=== PATIENT | female | born 1945 | race Caucasian/White ===

== ENCOUNTER 2017-09-26 14:32 | Inpatient (IN) | payer OTHER ==
[2017-09-26 14:50] LABS: Arterial Blood Carboxyhemoglob 0.6 % (0-1.5); Blood Gas Oxyhemoglobin 97.7 % (94-97); Blood O2 Saturation 98.8 % (92-98.5)
[2017-09-26] MEDS ORDERED: LEVALBUTEROL 1.25 MG/3 ML NEB ONE (15:02)
[2017-09-26 15:16] LABS: Absolute Lymphocytes (CBC) 1.2 K/uL (0.7-4.9); Absolute Monocytes 1.8 K/uL (0.1-1.3); Absolute Neutrophil 15.9 K/uL (1.8-8.0); Basophils % 0.1 % (0-1.3); Eosinophils % 0.1 % (0-4.4); Hematocrit 33.5 % (36.0-45.0); Lymphocytes % 6.4 % (15.3-44.8); MCH 30.1 pg (27.0-35.0); MCV 94.2 fL (80-100); MPV 9.8 fL (7.6-11.3); Monocytes % 9.5 % (3.3-12.3); RBC Red Blood Cell Count 3.56 M/uL (3.86-4.86)
[2017-09-26 15:17] LABS: Protime INR 1.11
[2017-09-26 15:19] LABS: Potassium 4.7 mEq/L (3.6-5.0)
[2017-09-26 15:25] LABS: Albumin 3.4 g/dL (3.2-5.5); Bilirubin Total 0.4 mg/dL (0.3-1.2); Magnesium 2.4 mg/dL (1.8-2.5); Protein, Total 6.8 g/dL (6.0-8.3)
--- NOTE | 2017-09-26 15:38 | RAD REPORT ---
EXAM DESCRIPTION: RAD - Chest Single View - 09/26/2017 2:57 pm CLINICAL HISTORY: Dyspnea, COPD history COMPARISON: CT chest June 2017 TECHNIQUE: AP portable chest image was obtained 1451 hours . FINDINGS: Extensive fibrotic lung pattern is seen. Diaphragm is flattened. No new mass or consolidat ion. CT study showed a right suprahilar mass not clearly different in size. Comparing between 2 diffe rent modalities is limited but no change suspected. No new mass lesion. No failure or volume overload suspected. Heart and vasculature are normal. No measurable pleural effusion and no pneumothorax. No acute bone finding. Thoracolumbar scoliosis present. No acute aortic findings suspected. IMPRESSION: Prominent COPD findings with no superimposed failure or infiltrate. Right suprahilar lung mass is not clearly different over the 3 month interval since June CT.
[2017-09-26 16:02] LABS: Bilirubin Direct 0.1 mg/dL (0-0.2)
[2017-09-26] MEDS ORDERED: NA CHLORIDE 0.9% 1,000 ML ONE ×2 (16:09→19:40)
[2017-09-26] MEDS ORDERED: Levofloxacin500mg IV 500 MG/100 ML BAG IV ONE (16:09)
[2017-09-26] MEDS ORDERED: NA CHLORIDE 0.9% 500 ML ONE (16:09)
--- NOTE | 2017-09-26 16:11 | EDPHYS ---
Physician Documentation [facility] Name: Juliet Iniguez Age: 72 yrs Sex: Female : 1945 Arrival Date: 09/26/2017 Time: 14:35 Bed 3 Private MD: ED Physician Shlomo Damon HPI: 09/26 15:50 This 72 yrs old Female presents to ER via EMS with complaints of Shortness Of jr8 Breath. 15:50 The patient has shortness of breath at rest. Onset: The symptoms/episode began/occurred jr8 acutely, today. Duration: The symptoms are continuous. The patient's shortness of breath is aggravated by talking. Associated signs and symptoms: The patient has no apparent associated signs or symptoms. Severity of symptoms: At their worst the symptoms were severe in the emergency department the symptoms are unchanged. It is unknown whether or not the patient has had similar symptoms in the past. The patient has not recently seen a physician. History of COPD and Lung CA. Currently undergoing radiation therapy. Had sudden worsening of shortness of breath that started today. 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 Historical: - Allergies: 16:06 No Known Allergies; la1 - Home Meds: 16:51 Vitamin D vitamin D3 1000 unit daily in the morning Oral [Active]; Advair Diskus 250-50 la1 mcg/dose Inhl dsdv 1 puff 2 times per day [Active]; Spiriva with HandiHaler inhalation once daily [Active]; aspirin 81 mg Oral TbEC 1 tab once daily [Active]; Plavix 75 mg Oral tab 1 tab once daily [Active]; Lipitor 20 mg Oral tab 1 tab once daily [Active]; Wellbutrin SR 100 mg Oral TbER 1 tab 2 times per day [Active]; Levoxyl 75 mcg Oral tab 1 tab once daily [Active]; Remeron 15 mg Oral tab 1 tab once daily [Active]; Lasix 20 mg Oral tab 1 tab once daily [Active]; potassium chloride 20 mEq Oral TbTQ 1 tab once daily [Active]; Coreg 6.25 mg Oral tab 1 tab every 12 hours [Active]; lisinopril 2.5 mg Oral tab 1 tab once daily [Active]; ProAir HFA 90 mcg/actuation inhalation HFAA 2 puffs PRN [Active]; [place] 5-325 mg Oral tab 1 tab PRN [Active]; Ativan 0.5 mg Oral tab 1 tab PRN [Active]; prednisone 10 mg Oral tab PRN [Active]; azithromycin 1 gram Oral pack 1 packet [Active]; Prednisolone Oral taper [Active]; - PMHx: 16:06 lung CA; COPD; Hypertension; la1 - Immunization history:: Adult Immunizations up to date. - Social history:: Smoking status: unknown. ROS: 15:50 Eyes: Negative for injury, pain, redness, and discharge, ENT: Negative for injury, jr8 pain, and discharge, Neck: Negative for injury, pain, and swelling, Cardiovascular: Negative for chest pain, palpitations, and edema, Abdomen/GI: Negative for abdominal pain, nausea, vomiting, diarrhea, and constipation, Back: Negative for injury and pain, MS/Extremity: Negative for injury and deformity, Skin: Negative for injury, rash, and discoloration, Neuro: Negative for headache, weakness, numbness, tingling, and seizure. 15:50 Respiratory: Positive for cough, dyspnea on exertion, shortness of breath, wheezing. Exam: 15:50 Head/Face: Normocephalic, atraumatic. Eyes: Pupils equal round and reactive to light, jr8 extra-ocular motions intact. Lids and lashes normal. Conjunctiva and sclera are non-icteric and not injected. Cornea within normal limits. Periorbital areas with no swelling, redness, or edema. ENT: Nares patent. No nasal discharge, no septal abnormalities noted. Tympanic membranes are normal and external auditory canals are clear. Oropharynx with no redness, swelling, or masses, exudates, or evidence of obstruction, uvula midline. Mucous membranes moist. Neck: Trachea midline, no thyromegaly or masses palpated, and no cervical lymphadenopathy. Supple, full range of motion without nuchal rigidity, or vertebral point tenderness. No Meningismus. Cardiovascular: Sinus Tachycardia with a normal S1 and S2. No gallops, murmurs, or rubs. Normal PMI, no JVD. No pulse deficits. Abdomen/GI: Soft, non-tender, with normal bowel sounds. No distension or tympany. No guarding or rebound. No evidence of tenderness throughout. Back: No spinal tenderness. No costovertebral tenderness. Full range of motion. Skin: Warm, dry with normal turgor. Normal color with no rashes, no lesions, and no evidence of cellulitis. MS/ Extremity: Pulses equal, no cyanosis. Neurovascular intact. Full, normal range of motion. Neuro: Awake and alert, GCS 15, oriented to person, place, time, and situation. Cranial nerves II-XII grossly intact. Motor strength 5/5 in all extremities. Sensory grossly intact. Cerebellar exam normal. Normal gait. 15:50 Respiratory: moderate respiratory distress is noted, Respirations: labored breathing, tachypnea, Breath sounds: wheezing: expiratory that is moderate, is heard diffusely. Vital Signs: 14:41 BP 167 / 79; Pulse 123; Resp 36; Pulse Ox 96% on 100% BiPAP; la1 16:03 BP 120 / 57; Pulse 112; Resp 17; Pulse Ox 100% on 30% BiPAP; Weight 47.63 kg; la1 16:10 Temp 97.8(A); la1 16:53 BP 117 / 50; Pulse 103; Resp 18; Pulse Ox 100% on BiPAP; jb1 17:40 BP 133 / 64; Pulse 101; Resp 19; Pulse Ox 98% on 30% BiPAP; la1 18:51 BP 130 / 57; Pulse 105; Resp 21; Pulse Ox 98% on 30% BiPAP; la1 MDM: 14:40 Patient medically screened. jr8 15:56 Data reviewed: vital signs, nurses notes, lab test result(s), EKG, radiologic studies, jr8 plain films, and as a result, I will admit patient. Data interpreted: Pulse oximetry: on room air is 96 %. Interpretation: normal. Counseling: I had a detailed discussion with the patient and/or guardian regarding: the historical points, exam findings, and any diagnostic results supporting the discharge/admit diagnosis, lab results, radiology results, the need for further work-up and treatment in the hospital. 16:08 ED course: Talked to Dr. Miller about calcium. Will start on aggressive fluid jr8 resuscitation and pamidronate. Dr. Givens notified as well and accepted to ICU . 09/26 14:42 Order name: Basic Metabolic Panel jr8 09/26 14:42 Order name: BNP jr8 09/26 14:42 Order name: CBC with Diff; Complete Time: 15:23 jr8 09/26 14:42 Order name: LFT's; Complete Time: 16:11 [facility] 09/26 14:42 Order name: Magnesium; Complete Time: 16:11 [facility] 09/26 14:42 Order name: PT-INR; Complete Time: 15:39 09/26 14:42 Order name: Troponin (emerg Dept Use Only); Complete Time: 15:39 09/26 14:42 Order name: Blood Culture Adult (2) 09/26 14:42 Order name: ABG; Complete Time: 15:11 [facility] 09/26 14:43 Order name: Basic Metabolic Panel; Complete Time: 16:11 [facility] 09/26 14:43 Order name: BNP B-Type Natriuretic Peptide; Complete Time: 15:39 [facility] 09/26 19:17 Order name: ABG Arterial Blood Gas; Complete Time: 10:17 [facility] 09/26 19:43 Order name: Troponin I; Complete Time: 10:17 [facility] 09/26 20:02 Order name: Procalcitonin; Complete Time: 10:17 [facility] 09/26 14:42 Order name: XRAY Chest (1 view); Complete Time: 15:39 09/26 14:42 Order name: EKG; Complete Time: 14:43 [facility] 09/26 14:42 Order name: Cardiac monitoring; Complete Time: 14:42 [facility] 09/26 14:42 Order name: EKG - Nurse/Tech; Complete Time: 14:47 09/26 14:42 Order name: IV Saline Lock; Complete Time: 14:43 [facility] 09/26 14:42 Order name: Labs collected and sent; Complete Time: 15:02 [facility] 09/26 14:42 Order name: O2 Per Protocol; Complete Time: 14:43 [facility] 09/26 14:42 Order name: O2 Sat Monitoring; Complete Time: 14:43 [facility] 09/26 14:42 Order name: Urine Dipstick-Ancillary (obtain specimen); Complete Time: 18:17 [facility] 09/26 14:42 Order name: BIPAP [facility] 09/26 16:20 Order name: CONS Physician Consult [facility] 09/26 22:52 Order name: CT; Complete Time: 10:17 EDMS Administered Medications: 15:10 Drug: Xopenex (3) 1.25 mg Route: Inhalation; la1 16:18 Drug: LevaQUIN 500 mg Volume: 100 ml; Route: IVPB; Infused Over: 60 mins; Site: left la1 antecubital; 17:13 Follow up: IV Status: Completed infusion la1 16:18 Drug: NS 0.9% (30 ml/kg) 30 ml/kg Route: IV; Rate: bolus; Site: left antecubital; la1 17:14 Drug: Pamidronate 60 mg Route: IV; Rate: calculated rate; Site: left antecubital; la1 Disposition: 09/26/17 16:10 Hospitalization ordered by Aimee Givens for Inpatient Admission. Preliminary diagnosis are Acute and chronic respiratory failure with hypercapnia, Chronic obstructive pulmonary disease with (acute) exacerbation, Hypercalcemia. - Bed requested for Intensive Care Unit. - Status is Inpatient Admission. bb - Condition is Fair. - Problem is new. - Symptoms have improved. UTI on Admission? No Addendum: 10/04/2017 20:01 Co-signature as Attending Physician, Shlomo Damon MD I agree with the assessment and k dr plan of care. Signatures: Dispatcher [employer] EDND Shlomo Damon MD MD kdr Lily Kim RN RN bb Isabel Galindo RN RN iw Dusty Da Silva PA PA jr8 Dav Brown RN RN la1 Corrections: (The following items were deleted from the chart) 09/26 17:39 16:10 Hospitalization Ordered by Aimee Givens MD for Inpatient Admission. Preliminary iw diagnosis is Acute and chronic respiratory failure with hypercapnia; Chronic obstructive pulmonary disease with (acute) exacerbation; Hypercalcemia. Bed requested for Intensive Care Unit. Status is Inpatient Admission. Condition is Fair. Problem is new. Symptoms have improved. UTI on Admission? No. jr8 18:05 17:39 09/26/2017 16:10 Hospitalization Ordered by Aimee Givens MD for Inpatient iw Admission. Preliminary diagnosis is Acute and chronic respiratory failure with hypercapnia; Chronic obstructive pulmonary disease with (acute) exacerbation; Hypercalcemia. Bed requested for [facility] ER HOLD. Status is Inpatient Admission. Condition is Fair. Problem is new. Symptoms have improved. UTI on Admission? No. iw 21:50 18:05 09/26/2017 16:10 Hospitalization Ordered by Aimee Givens MD for Inpatient la1 Admission. Preliminary diagnosis is Acute and chronic respiratory failure with hypercapnia; Chronic obstructive pulmonary disease with (acute) exacerbation; Hypercalcemia. Bed requested for [facility] ER HOLD. Status is Inpatient Admission. Condition is Fair. Problem is new. Symptoms have improved. UTI on Admission? No. iw 09/27 00:14 09/26 21:50 09/26/2017 16:10 Hospitalization Ordered by Aimee Givens MD for Inpatient bb Admission. Preliminary diagnosis is Acute and chronic respiratory failure with hypercapnia; Chronic obstructive pulmonary disease with (acute) exacerbation; Hypercalcemia. Bed requested for Intensive Care Unit. Status is Inpatient Admission. Condition is Fair. Problem is new. Symptoms have improved. UTI on Admission? No. la1
--- NOTE | 2017-09-26 16:11 | ER ---
Nurse's Notes [facility] Name: Juliet Iniguez Age: 72 yrs Sex: Female : 1945 Arrival Date: 09/26/2017 Time: 14:35 Bed 3 Private MD: Diagnosis: Acute and chronic respiratory failure with hypercapnia;Chronic obstructive pulmonary disease with (acute) exacerbation;Hypercalcemia Presentation: 09/26 14:36 Presenting complaint: EMS states: COPD exacerbation x 2 days. 89% on NC at home. Pr la1 currently receiving radiation treatment for lung CA. Transition of care: patient was not received from another setting of care. Onset of symptoms was September 26, 2017. Initial Sepsis Screen: Does the patient meet any 2 criteria? RR > 20 per min. HR > 90 bpm. Yes Does the patient have a suspected source of infection? No. Patient's initial sepsis screen is negative. Care prior to arrival: None. 14:36 Method Of Arrival: EMS: [facility] la1 14:36 Acuity: KEITH 2 la1 14:37 Care prior to arrival: Medication(s) given: Albuterol Neb Atrovent Neb solu-medrol 125 la1 and NS 250. Triage Assessment: 14:46 General: Appears distressed, uncomfortable, Behavior is cooperative. Respiratory: la1 Reports shortness of breath at rest air hunger labored breathing since one day Breath sounds with wheezes bilaterally. Respiratory: Onset: The symptoms/episode began/occurred yesterday. Historical: - Allergies: 16:06 No Known Allergies; la1 - Home Meds: 16:51 Vitamin D vitamin D3 1000 unit daily in the morning Oral [Active]; Advair Diskus 250-50 la1 mcg/dose Inhl dsdv 1 puff 2 times per day [Active]; Spiriva with HandiHaler inhalation once daily [Active]; aspirin 81 mg Oral TbEC 1 tab once daily [Active]; Plavix 75 mg Oral tab 1 tab once daily [Active]; Lipitor 20 mg Oral tab 1 tab once daily [Active]; Wellbutrin SR 100 mg Oral TbER 1 tab 2 times per day [Active]; Levoxyl 75 mcg Oral tab 1 tab once daily [Active]; Remeron 15 mg Oral tab 1 tab once daily [Active]; Lasix 20 mg Oral tab 1 tab once daily [Active]; potassium chloride 20 mEq Oral TbTQ 1 tab once daily [Active]; Coreg 6.25 mg Oral tab 1 tab every 12 hours [Active]; lisinopril 2.5 mg Oral tab 1 tab once daily [Active]; ProAir HFA 90 mcg/actuation inhalation HFAA 2 puffs PRN [Active]; [place] 5-325 mg Oral tab 1 tab PRN [Active]; Ativan 0.5 mg Oral tab 1 tab PRN [Active]; prednisone 10 mg Oral tab PRN [Active]; azithromycin 1 gram Oral pack 1 packet [Active]; Prednisolone Oral taper [Active]; - PMHx: 16:06 lung CA; COPD; Hypertension; la1 - Immunization history:: Adult Immunizations up to date. - Social history:: Smoking status: unknown. Screenin:45 Abuse screen: Denies threats or abuse. Nutritional screening: No deficits noted. la1 Tuberculosis screening: No symptoms or risk factors identified. Fall Risk No fall in past 12 months (0 pts). No secondary diagnosis (0 pts). IV access (20 points). Ambulatory Aid- None/Bed Rest/Nurse Assist (0 pts). Gait- Weak (10 pts.). Mental Status- Oriented to own ability (0 pts). Total Lopez Fall Scale indicates Low Risk Score (25-44 pts). Placed close to Nursing Station. Assessment: 14:43 General: Appears distressed, uncomfortable, Behavior is cooperative. Pain: Denies pain. la1 Neuro: Level of Consciousness is awake, alert, obeys commands, Oriented to person, place, time, situation. Cardiovascular: Heart tones S1 S2 present Capillary refill < 3 seconds Patient's skin is warm and dry. Cardiovascular: Rhythm is sinus tachycardia. Respiratory: Airway is patent Trachea midline Respiratory effort is labored, gasping, pursed lip, Respiratory pattern is tachypnea Breath sounds with wheezes bilaterally. GI: Abdomen is round non-distended. : No signs and/or symptoms were reported regarding the genitourinary system. Derm: PT has multiple stickers to chest and abd pt states are from radiation treatment for lung CA. 16:19 Reassessment: Patient appears in no apparent distress at this time. No changes from la1 previously documented assessment. Patient and/or family updated on plan of care and expected duration. Pain level reassessed. 17:14 Reassessment: Patient appears in no apparent distress at this time. No changes from la1 previously documented assessment. Patient and/or family updated on plan of care and expected duration. Pain level reassessed. 18:55 Respiratory: Airway is patent Trachea midline Respiratory effort is even, labored, la1 Respiratory pattern is tachypnea Breath sounds are diminished bilaterally. 22:40 Reassessment: Patient ER HOLD, Documentation continued in [facility]. ad1 Vital Signs: 14:41 BP 167 / 79; Pulse 123; Resp 36; Pulse Ox 96% on 100% BiPAP; la1 16:03 BP 120 / 57; Pulse 112; Resp 17; Pulse Ox 100% on 30% BiPAP; Weight 47.63 kg; la1 16:10 Temp 97.8(A); la1 16:53 BP 117 / 50; Pulse 103; Resp 18; Pulse Ox 100% on BiPAP; jb1 17:40 BP 133 / 64; Pulse 101; Resp 19; Pulse Ox 98% on 30% BiPAP; la1 18:51 BP 130 / 57; Pulse 105; Resp 21; Pulse Ox 98% on 30% BiPAP; la1 ED Course: 14:35 Patient arrived in ED. la1 14:35 Shlomo Damon MD is Attending Physician. kdr 14:35 Initial lab(s) drawn, by mn, sent to lab. First set of blood cultures drawn by mn. jb1 14:37 Triage completed. la1 14:37 Arm band placed on left wrist. la1 14:40 Dusty Da Silva PA is PHCP. jr8 14:40 Maintain EMS IV. Dressing intact. Gauge \T\ site: 22g right wrist. la1 14:46 Placed in gown. Bed in low position. Call light in reach. monitor worker on. Pulse ox la1 on. NIBP on. 14:47 BIPAP Sent. la1 14:50 Second set of blood cultures drawn by mn. jb1 14:55 X-ray completed. Portable x-ray completed in exam room. Patient tolerated procedure jb2 well. 14:56 XRAY Chest (1 view) In Process Unspecified. EDMS 14:57 EKG done, by commercial service technician. reviewed by Shlomo Damon MD. tc 15:01 Inserted saline lock: 22 gauge in left antecubital area, using aseptic technique. Blood jb1 collected. 15:09 Dav Brown, RN is Primary Nurse. la1 16:09 Aimee Givens MD is Hospitalizing Provider. jr8 18:17 [place] cath inserted, using sterile technique, 16 Fr., by mn, balloon inflated, to ae1 gravity drainage, urine specimen collected. returned clear yellow urine. Patient tolerated well. Administered Medications: 15:10 Drug: Xopenex (3) 1.25 mg Route: Inhalation; la1 16:18 Drug: LevaQUIN 500 mg Volume: 100 ml; Route: IVPB; Infused Over: 60 mins; Site: left la1 antecubital; 17:13 Follow up: IV Status: Completed infusion la1 16:18 Drug: NS 0.9% (30 ml/kg) 30 ml/kg Route: IV; Rate: bolus; Site: left antecubital; la1 17:14 Drug: Pamidronate 60 mg Route: IV; Rate: calculated rate; Site: left antecubital; la1 Outcome: 16:10 Decision to Hospitalize by Provider. jr8 23:00 Admitted to ICU accompanied by nurse, accompanied by tech, family with patient, via ad1 stretcher, with oxygen, on monitor, with chart, Report called to Khushi Hoff RN 09/27 00:14 Patient left the ED. bb Signatures: Dispatcher [employer] EDMS James Fan jb1 Shlomo Damon MD MD kdr Buechter, Jesse jb2 Lily Kim RN RN bb Dana Cuellar RN RN ad1 Dusty Da Silva PA PA jr8 Clarita Rodriguez, powder carrier EKG Ttc Dav Brown, RN RN la1 Jean Aguilar, KYLE RN ae1 Corrections: (The following items were deleted from the chart) 09/26 14:46 14:40 Missed attempt(s): 22 gauge in right wrist. la1 la1
--- NOTE | 2017-09-26 16:24 | EKG ---
Test Date: 2017-09-26 Test Time: 14:47:40 Ems Helicopter Pilot: ADONIS MEASUREMENT RESULTS: Intervals: Rate: 118 IL: 148 QRSD: 60 QT: 288 QTc: 403 [place]: P: 84 IL: 148 QRS: 54 T: 50 INTERPRETIVE STATEMENTS: Sinus tachycardia Right atrial enlargement Borderline ECG No previous ECG available for comparison Electronically Signed On 09-26-17 16:23:22 CDT by Fredo Gonzalez
--- NOTE | 2017-09-26 16:59 | P.HP ---
Certification for Inpatient Patient admitted to: Inpatient With expected LOS: >2 Midnights Patient will require the following post-hospital care: None Practitioner: I am a practitioner with admitting privileges, knowledge of patient current condition, hospital course, and medical plan of care. Services: Services provided to patient in accordance with Admission requirements found in Title 42 Section 412.3 of the Code of Federal Regulations Patient History Date of Service: 09/27/17 Primary Care Provider: Dr Bruno, Dr Miller and Dr Gonzalez Reason for admission: SOB History of Present Illness: This is a 72-year-old female with significant past medical history of lung cancer who presented to the ED complaining of having some shortness of breath. Daughter at bedside stated that she visited her mom this morning and was doing just fine however after she left for work her came back and visited her [id number] and noted that she was feeling groggy. They got the health care coordinator to come and stay with her in the house. After couple of hrs the caregiver was at home noted that pt was very weal and fell on the floor. Patient was not able to get herself up. Was having trouble breathing. Thus was brought over to the hospital for further care. Patient has terminal COPD recently diagnosed with lung cancer and is currently undergoing radiation of for the left upper lobe nodule. She she does have [id number] DNR DNI per the family members. Allergies No Known Allergies Allergy (Verified 09/26/17 21:20) Home Medications: Albuterol Neb [Proventil 0.083% Neb Soln] 1 aero IH QID PRN 09/26/17 Albuterol Sulfate [Proair Hfa] 2 puff IH PRN PRN 09/26/17 Aspirin [Aspir-Low] 81 mg PO DAILY 09/26/17 Atorvastatin Calcium [Lipitor*] 20 mg PO DAILY 09/26/17 Azithromycin [Zithromax] 250 mg PO DAILY 09/26/17 Buproprion S.r. [Wellbutrin Sr*] 100 mg PO BID 09/26/17 Carvedilol [Coreg*] 6.25 mg PO BID 09/26/17 Cholecalciferol (Vitamin D3) [Vitamin D3] 1 tab PO DAILY 09/26/17 Clopidogrel Bisulfate [Plavix*] 75 mg PO DAILY 09/26/17 Fluticasone/Salmeterol [Advair 250-50 Diskus] 1 inh IH BID 09/26/17 Furosemide [Lasix*] 20 mg PO DAILY 09/26/17 Hydrocodone 5/APAP 325 [[place] 5/325*] 1 tab PO Q4H PRN 09/26/17 Levothyroxine Sodium [Levoxyl] 75 mcg PO DAILY 09/26/17 Lisinopril [Zestril] 2.5 mg PO DAILY 09/26/17 Lorazepam [Ativan*] 0.5 mg PO Q6H PRN 09/26/17 Mirtazapine [Remeron*] 15 mg PO BEDTIME 09/26/17 Potassium Chloride 20 meq PO DAILY 09/26/17 Prednisone [Prednisone*] 10 mg PO DAILY 09/26/17 Tiotropium [place] [Spiriva Respimat] 1 inh IH DAILY 09/26/17 - Family History Father -: Heart disease Mother -: Cancer Brother -: Lung disease Review of Systems General: As per HPI Physical Examination - Physical Exam General: Alert, Oriented x3, Cachectic, Severe distress HEENT: Atraumatic Neck: Supple Respiratory: Diminished (Left lung. Wheezing all over the lung ), Expiratory wheezes, Inspiratory wheezes, Rhonchi/gurgles Cardiovascular: Regular rate/rhythm, Normal S1 S2 Gastrointestinal: Normal bowel sounds, Soft and benign, Non-distended, No tenderness Musculoskeletal: No tenderness Integumentary: No rashes Neurological: Abnormal speech, Abnormal strength, Abnormal tone Lymphatics: No axilla or inguinal lymphadenopathy - Studies Laboratory Data (last 24 hrs) 09/26/17 14:50: PT 13.1 H, INR 1.11 09/26/17 14:50: WBC 18.9 H, Hgb 10.7 L, Hct 33.5 L, Plt Count 424 H 09/26/17 14:50: B-Natriuretic Peptide 127 H 09/26/17 14:50: Sodium 136, Potassium 4.7, BUN 45 H, Creatinine 0.85, Glucose 118, Magnesium 2.4, Total Bilirubin 0.4, AST 76 H, ALT 54, Alkaline Phosphatase 140 H Assessment and Plan - Problems (Diagnosis) (1) Acute respiratory failure Current Visit: Yes Status: Acute Plan: ARF with Hypercapnia. Most Likely 2.2 to ESCOPD and Lung Ca -Pulmonology consulted. Awaiting reccs -Currently on BIPAP -Duonebs, steriods and IV abx -Wean as tolerated to NC -xray in AM along with ABG Qualifiers: Respiratory failure complication: hypoxia and hypercapnia Qualified Code(s) : J96.01 - Acute respiratory failure with hypoxia; J96.02 - Acute respiratory failure with hypercapnia; J96.02 - Acute respiratory failure with hypercapnia; J96.02 - Acute respiratory failure with hypercapnia (2) Hypercalcemia of malignancy Current Visit: Yes Status: Acute Plan: Ca of 17 in the ED -IV fluids, Pamidronate ggt and Lasix -Oncology consulted. Appreciate reccs -Repeat CA in AM (3) Lung cancer Current Visit: Yes Status: Chronic Qualifiers: Laterality: left Lung location: upper lobe of lung Qualified Code(s): C34.12 - Malignant neoplasm of upper lobe, left bronchus or lung (4) COPD (chronic obstructive pulmonary disease) Current Visit: Yes Status: Chronic Qualifiers: COPD type: COPD with acute exacerbation Qualified Code(s): J44.1 - Chronic obstructive pulmonary disease with (acute) exacerbation Discharge Plan: Other Plan to discharge in: 48 Hours - Advance Directives Does patient have a Living Will: No Does patient have a Durable POA for Healthcare: No - Code Status/Comfort Care Code Status Assessed: Yes Code Status: Do Not Resuscitate Critical Care: No
[2017-09-26] MEDS ORDERED: PAMIDRONATE 60 MG in NA CHLORIDE 0.9% 500 ML IV SCH (17:00)
[2017-09-26] MEDS ORDERED: IPRATROPIUM BROM 0.5MG/2.5ML NEB PRN (17:38)
[2017-09-26] MEDS ORDERED: NA CHLORIDE 0.9% 1,000 ML IV SCH (17:38)
[2017-09-26] MEDS ORDERED: ACETAMINOPHEN 500 MG TAB PO PRN (17:38)
[2017-09-26] MEDS ORDERED: ALBUTEROL 2.5 MG/3 ML NEB SOL NEB PRN (17:38)
[2017-09-26] MEDS ORDERED: ONDANSETRON 4 MG/2 ML VIAL IV PRN (17:38)
[2017-09-26] MEDS ORDERED: ALBUTEROL 2.5 MG/3 ML NEB SOL NEB SCH ×2 (19:00→20:00)
[2017-09-26] MEDS: LEVALBUTEROL 0.63 MG/3 ML NEB NEB SCH ×2 (19:00→23:40)
[2017-09-26 19:05] LABS: Arterial Blood Carboxyhemoglob 0.8 % (0-1.5); Blood Gas Oxyhemoglobin 94.8 % (94-97)
[2017-09-26] MEDS ORDERED: METHYLPREDNISOLONE 40 MG INJ ONE (19:39)
[2017-09-26] MEDS ORDERED: LEVALBUTEROL 0.63 MG/3 ML NEB ONE (19:49)
[2017-09-26] MEDS ORDERED: IPRATROPIUM BROM 0.5MG/2.5ML ONE (19:51)
[2017-09-26] MEDS: IPRATROPIUM BROM 0.5MG/2.5ML NEB SCH ×2 (20:00→23:38)
[2017-09-26] MEDS: ARFORMOTEROL TARTRATE 15 MCG/2 ML VIAL.NEB NEB SCH (20:00)
[2017-09-26] MEDS: METHYLPREDNISOLONE 40 MG INJ IV SCH (20:01)
[2017-09-26] MEDS: NA CHLORIDE 0.9% 1,000 ML IV SCH (20:02)
[2017-09-26] MEDS ORDERED: FLUCONAZOLE 100 MG TAB ONE (21:54)
--- NOTE | 2017-09-26 22:51 | RAD REPORT ---
EXAM DESCRIPTION: CT - Thorax Wo Con - 09/26/2017 8:45 pm CLINICAL HISTORY: COPD, shortness of breath COMPARISON: None. TECHNIQUE: Axial 5 mm thick images of the chest were obtained without IV contrast. All CT scans are performed using dose optimization technique as appropriate and may include automated exposure control or mA/KV adjustment according to patient size. FINDINGS: Spiculated right upper lobe mass measures approximately 22 x 17 mm. This is not substantia lly different over a short interval since September 04. Patient has significant baseline COPD. Small right middle lobe nodule at 10 mm in size is similar or perhaps fractionally enlarged from September 04. Scatte red scarring changes are present. No new or enlarging mediastinal or hilar mass. Retrocaval-pretrache al lymphadenopathy is still present. No pleural thickening or pleural effusion. No pneumothorax. Vascular assessment is limited in the absence of contrast. No pericardial thickening or effusion. No chest wall mass or abnormal axillary lymphadenopathy. Limited upper abdomen imaging shows extensive liver metastatic disease. There is some suggestion that the metastatic lesions have progressed even over the short interval since September 04. This exam is cons idered significantly limited in terms of liver assessment. IMPRESSION: Spiculated right upper lobe mass is not substantially different. Mediastinal lymphadenopathy is not significantly different from September 04. Multiple metastatic lesions are present in the liver with questionable interval increase since September 04. This exam is considered significantly limited in terms of liver assessment.
[2017-09-27] MEDS: METHYLPREDNISOLONE 40 MG INJ IV SCH ×3 (01:54→16:55)
[2017-09-27] MEDS: NA CHLORIDE 0.9% 1,000 ML IV SCH ×5 (01:54→19:31)
[2017-09-27] MEDS: LEVALBUTEROL 0.63 MG/3 ML NEB NEB SCH ×2 (03:40→07:00)
[2017-09-27] MEDS: IPRATROPIUM BROM 0.5MG/2.5ML NEB SCH ×4 (03:42→19:18)
[2017-09-27 06:20] LABS: Absolute Lymphocytes (CBC) 0.2 K/uL (0.7-4.9); Absolute Monocytes 0.4 K/uL (0.1-1.3); Absolute Neutrophil 9.1 K/uL (1.8-8.0); Basophils % 0.1 % (0-1.3); Lymphocytes % 1.6 % (15.3-44.8); MCH 30.9 pg (27.0-35.0); MCV 94.4 fL (80-100); MPV 9.7 fL (7.6-11.3); Monocytes % 4.1 % (3.3-12.3); RBC Red Blood Cell Count 2.75 M/uL (3.86-4.86)
[2017-09-27 06:40] LABS: Albumin 2.5 g/dL (3.2-5.5); Bilirubin Total 0.5 mg/dL (0.3-1.2); Magnesium 1.9 mg/dL (1.8-2.5); Phosphorus 2.8 mg/dL (2.5-4.3); Potassium 4.1 mEq/L (3.6-5.0); Protein, Total 5.2 g/dL (6.0-8.3)
[2017-09-27] MEDS ORDERED: LEVALBUTEROL 0.63 MG/3 ML NEB NEB SCH (08:00)
[2017-09-27 08:03] LABS: Blood Morphology Comment NOT SEEN (NOT SEEN); Platelet Estimate ADEQ
[2017-09-27] MEDS: ARFORMOTEROL TARTRATE 15 MCG/2 ML VIAL.NEB NEB SCH ×2 (08:06→19:19)
[2017-09-27] MEDS: ASPIRIN EC 81 MG TAB PO SCH (08:45)
[2017-09-27] MEDS: FLUCONAZOLE 100 MG TAB PO SCH (08:45)
[2017-09-27] MEDS ORDERED: PANTOPRAZOLE 40 MG INJ IVP SCH (09:00)
[2017-09-27] MEDS ORDERED: BUPROPRION HCL S.R. 150MG TAB PO SCH (09:00)
[2017-09-27] MEDS ORDERED: CARVEDILOL 6.25 MG TAB PO SCH (09:00)
[2017-09-27] MEDS ORDERED: LISINOPRIL 5 MG TAB PO SCH (09:00)
[2017-09-27] MEDS ORDERED: ASPIRIN EC 81 MG TAB PO SCH (09:00)
[2017-09-27] MEDS ORDERED: CLOPIDOGREL 75 MG TABLET PO SCH (09:00)
[2017-09-27] MEDS ORDERED: FUROSEMIDE 20 MG TABLET PO SCH (09:00)
[2017-09-27] MEDS: ATORVASTATIN 20 MG TAB PO SCH (09:00)
--- NOTE | 2017-09-27 09:53 | P.CNS ---
Date of Consult: 09/27/17 Chief Complaint: Shortness of breath weakness History of Present Illness: Patient is 72 years of age well known to me she has terminal COPD recently diagnosed lung cancer hr are currently undergoing radiation for a left upper lobe nodule became very weak fell on the floor ended up here in the hospital she has an out of hospital DNR little short of breath still feeling weak patient was found to be hypercalcemic was given 1 dose of pamidronate and on IV fluids Allergies No Known Allergies Allergy (Verified 09/26/17 21:20) Home Medications: Albuterol Neb [Proventil 0.083% Neb Soln] 1 aero IH QID PRN 09/26/17 Albuterol Sulfate [Proair Hfa] 2 puff IH PRN PRN 09/26/17 Aspirin [Aspir-Low] 81 mg PO DAILY 09/26/17 Atorvastatin Calcium [Lipitor*] 20 mg PO DAILY 09/26/17 Azithromycin [Zithromax] 250 mg PO DAILY 09/26/17 Buproprion S.r. [Wellbutrin Sr*] 100 mg PO BID 09/26/17 Carvedilol [Coreg*] 6.25 mg PO BID 09/26/17 Cholecalciferol (Vitamin D3) [Vitamin D3] 1 tab PO DAILY 09/26/17 Clopidogrel Bisulfate [Plavix*] 75 mg PO DAILY 09/26/17 Fluticasone/Salmeterol [Advair 250-50 Diskus] 1 inh IH BID 09/26/17 Furosemide [Lasix*] 20 mg PO DAILY 09/26/17 Hydrocodone 5/APAP 325 [[place] 5/325*] 1 tab PO Q4H PRN 09/26/17 Levothyroxine Sodium [Levoxyl] 75 mcg PO DAILY 09/26/17 Lisinopril [Zestril] 2.5 mg PO DAILY 09/26/17 Lorazepam [Ativan*] 0.5 mg PO Q6H PRN 09/26/17 Mirtazapine [Remeron*] 15 mg PO BEDTIME 09/26/17 Potassium Chloride 20 meq PO DAILY 09/26/17 Prednisone [Prednisone*] 10 mg PO DAILY 09/26/17 Tiotropium [place] [Spiriva Respimat] 1 inh IH DAILY 09/26/17 - Past Medical/Surgical History Diabetic: No -: COPD -: Lung CA -: HTN -: tonsillectomy -: salivary stone removal -: spinal fusion -: carpal tunnel -: cataract sx - Family History Father Medical History: Heart disease Mother Medical History: Cancer Brother Medical History: Lung disease - Social History Smoking Status: Unknown if ever smoked Alcohol use: No CD- Drugs: No Caffeine use: Yes Place of Residence: Home Review of Systems 10-point ROS is otherwise unremarkable General: Weakness Respiratory: Cough, Shortness of Breath Physical Examination Temp Pulse Resp BP Pulse Ox 98 F 90 16 108/59 L 99 09/27/17 04:00 09/27/17 07:00 09/27/17 07:00 09/27/17 07:00 09/27/17 07:00 General: Alert, Moderate distress Respiratory: Clear to auscultation bilaterally, Diminished Cardiovascular: No edema, Normal S1 S2 Gastrointestinal: Normal bowel sounds, Soft and benign Musculoskeletal: No clubbing, No swelling Laboratory Data (last 24 hrs) 09/26/17 14:50: PT 13.1 H, INR 1.11 09/26/17 14:50: WBC 18.9 H, Hgb 10.7 L, Hct 33.5 L, Plt Count 424 H 09/26/17 14:50: B-Natriuretic Peptide 127 H 09/26/17 14:50: Sodium 136, Potassium 4.7, BUN 45 H, Creatinine 0.85, Glucose 118, Magnesium 2.4, Total Bilirubin 0.4, AST 76 H, ALT 54, Alkaline Phosphatase 140 H - Problems (1) COPD (chronic obstructive pulmonary disease) Current Visit: Yes Status: Acute Plan: Patient is 72 years of age well known to me she had stage for now lung cancer is got nodule in the right upper lobe mass which she was undergoing radiation therapy with spread to the liver based on the CTs overall prognosis is very poor her baseline functioning is very poor she is wheelchair bound terminal COPD continues to smoke hypoxic hypercapnic respiratory failure now is hypercalcemic most likely due to metastatic disease she is going to need 1 dose of pamidronate duration with IV fluids titrate sat to 90% Dc all antihypertensive agents including a PPI stop Plavix continue with aspirin high risk of bleed patient is and daughter and family members are agreeable with the DNR also discussed with them hospice care
--- NOTE | 2017-09-27 11:18 | RAD REPORT ---
EXAM DESCRIPTION: RAD - Chest Single View - 09/27/2017 6:10 am CLINICAL HISTORY: Respiratory failure COMPARISON: 09/26/2017 FINDINGS: Portable technique limits examination quality. The lungs are emphysematous but clear of acute infiltrate. The heart is normal in size. No displaced fractures. IMPRESSION: Prominent COPD pattern.
--- NOTE | 2017-09-27 12:59 | P.PN ---
Subjective Date of Service: 09/27/17 Primary Care Provider: Dr Bruno, Dr Miller and Dr Gonzalez Chief Complaint: SOB Pt seen and examined at bedside. Case discussed with pulmonology. Currently patient is DNR DNI. Is still on BiPAP at this time. Review of Systems General: As per HPI Physical Examination - Vital Signs Temperature: 98 F Blood Pressure: 114/47 Pulse: 109 Respirations: 16 Pulse Ox (%): 99 - Physical Exam General: Alert, Oriented x3, Cooperative, Cachectic HEENT: Atraumatic Neck: Supple Respiratory: Diminished, Expiratory wheezes, Inspiratory wheezes Cardiovascular: Regular rate/rhythm, Normal S1 S2 Gastrointestinal: Normal bowel sounds, Soft and benign, Non-distended, No tenderness Musculoskeletal: No clubbing Integumentary: No rashes Neurological: Normal speech, Abnormal strength, Abnormal tone - Studies Laboratory Data (last 24 hrs) 09/26/17 14:50: PT 13.1 H, INR 1.11 09/26/17 14:50: WBC 18.9 H, Hgb 10.7 L, Hct 33.5 L, Plt Count 424 H 09/26/17 14:50: B-Natriuretic Peptide 127 H 09/26/17 14:50: Sodium 136, Potassium 4.7, BUN 45 H, Creatinine 0.85, Glucose 118, Magnesium 2.4, Total Bilirubin 0.4, AST 76 H, ALT 54, Alkaline Phosphatase 140 H Assessment & Plan - Problems (Diagnosis) (1) Acute respiratory failure Current Visit: Yes Status: Acute Plan: ARF with Hypercapnia. Most Likely 2.2 to ESCOPD and Lung Ca -Pulmonology consulted. Reccs Appreciated -Currently on BIPAP -Duonebs, steriods and IV abx -Wean as tolerated to NC -xray in AM -Hospice Appropriate Qualifiers: Respiratory failure complication: hypoxia and hypercapnia Qualified Code(s) : J96.01 - Acute respiratory failure with hypoxia; J96.02 - Acute respiratory failure with hypercapnia; J96.02 - Acute respiratory failure with hypercapnia; J96.02 - Acute respiratory failure with hypercapnia (2) Hypercalcemia of malignancy Current Visit: Yes Status: Acute Plan: Ca of 15 now -IV fluids -DC Pamidronate ggt and Lasix -Oncology consulted. Appreciate reccs -Repeat CA in AM (3) Lung cancer Current Visit: Yes Status: Chronic Qualifiers: Laterality: left Lung location: upper lobe of lung Qualified Code(s): C34.12 - Malignant neoplasm of upper lobe, left bronchus or lung (4) COPD (chronic obstructive pulmonary disease) Current Visit: Yes Status: Chronic Qualifiers: COPD type: COPD with acute exacerbation Qualified Code(s): J44.1 - Chronic obstructive pulmonary disease with (acute) exacerbation Discharge Plan: Other (Hospice) Plan to discharge in: 24 Hours - Code Status/Comfort Care Code Status Assessed: Yes Code Status: Do Not Resuscitate Critical Care: Yes
[2017-09-27] MEDS ORDERED: Levofloxacin500mg IV 500 MG/100 ML BAG IV SCH (16:00)
[2017-09-27] MEDS: BUPROPRION HCL S R PO SCH (20:03)
[2017-09-27] MEDS: HYDROCODONE/APAP 5/325 MG TAB PO PRN (20:03)
[2017-09-27] MEDS ORDERED: FLUCONAZOLE 100 MG TAB PO SCH (21:16)
[2017-09-27 21:44] VITALS: BMI 19.5
[2017-09-28] MEDS: METHYLPREDNISOLONE 40 MG INJ IV SCH ×2 (00:32→09:19)
[2017-09-28] MEDS: IPRATROPIUM BROM 0.5MG/2.5ML NEB SCH ×4 (02:00→19:35)
[2017-09-28] MEDS ORDERED: LORAZEPAM 0.5 MG TABLET PO PRN (03:27)
[2017-09-28] MEDS: NA CHLORIDE 0.9% 1,000 ML IV SCH ×5 (05:56→22:45)
[2017-09-28] MEDS: LEVOTHYROXINE SOD 0.075 MG TAB PO SCH (06:15)
[2017-09-28 06:32] LABS: Albumin 2.6 g/dL (3.2-5.5); Bilirubin Total 0.2 mg/dL (0.3-1.2); Potassium 3.4 mEq/L (3.6-5.0)
[2017-09-28] MEDS: ARFORMOTEROL TARTRATE 15 MCG/2 ML VIAL.NEB NEB SCH ×2 (07:39→19:35)
--- NOTE | 2017-09-28 07:44 | RAD REPORT ---
EXAM DESCRIPTION: RAD - Chest Single View - 09/28/2017 5:58 am CLINICAL HISTORY: Chest pain, shortness of breath COMPARISON: September 19 TECHNIQUE: AP portable chest image was obtained 0545 hours . FINDINGS: Chronic interstitial lung disease is present. Pattern is similar to the comparison. No sup erimposed failure, infiltrate or mass. Heart, vasculature and lung markings are stable. No new tube o r line. No measurable pleural effusion and no pneumothorax. No gross bony abnormality seen. No acute aortic findings suspected. IMPRESSION: COPD pattern similar to comparison. No new mass, consolidation or infiltrates seen.
[2017-09-28] MEDS: ASPIRIN EC 81 MG TAB PO SCH (09:18)
[2017-09-28] MEDS: ATORVASTATIN 20 MG TAB PO SCH (09:18)
[2017-09-28] MEDS: FLUCONAZOLE 100 MG TAB PO SCH (09:19)
[2017-09-28] MEDS: BUPROPRION HCL S R PO SCH ×2 (09:19→20:16)
--- NOTE | 2017-09-28 10:26 | P.PN ---
Subjective Date of Service: 09/28/17 Primary Care Provider: Dr Bruno, Dr Miller and Dr Gonzalez Chief Complaint: SOB Pt seen and examined at bedside. Currently patient is DNR DNI. Extensive conversation was made with Daughter Felicita who is a POA for the patient regarding hospice care. Daughter agreed for Hospice and pt will be made comfort care. Family will be wanting to take pt home with hospice. Review of Systems General: As per HPI Physical Examination - Vital Signs Temperature: 99 F Blood Pressure: 158/69 Pulse: 115 Respirations: 18 Pulse Ox (%): 92 - Physical Exam General: Alert, Oriented x3, Moderate distress HEENT: Atraumatic Neck: Supple, JVD distended Respiratory: Expiratory wheezes, Inspiratory wheezes, Rhonchi/gurgles Cardiovascular: Normal pulses, Regular rate/rhythm Gastrointestinal: Normal bowel sounds, Soft and benign, Non-distended Musculoskeletal: No clubbing Integumentary: No rashes Neurological: Normal speech, Abnormal strength, Abnormal tone Assessment & Plan - Problems (Diagnosis) (1) Acute respiratory failure Current Visit: Yes Status: Acute Plan: ARF with Hypercapnia. Most Likely 2.2 to ESCOPD and Lung CA. Now on Hospice -Pulmonology consulted. Reccs Appreciated -Currently on NC -Duonebs, oxygen for now -Daugther is currently working on getting patient on hospice care. Will switch to comfort medication. Qualifiers: Respiratory failure complication: hypoxia and hypercapnia Qualified Code(s) : J96.01 - Acute respiratory failure with hypoxia; J96.02 - Acute respiratory failure with hypercapnia; J96.02 - Acute respiratory failure with hypercapnia; J96.02 - Acute respiratory failure with hypercapnia (2) Hypercalcemia of malignancy Current Visit: Yes Status: Acute Plan: Ca of 14 now -IV fluids -DC Pamidronate ggt and Lasix -Oncology consulted. Appreciate reccs (3) Lung cancer Current Visit: Yes Status: Chronic Qualifiers: Laterality: left Lung location: upper lobe of lung Qualified Code(s): C34.12 - Malignant neoplasm of upper lobe, left bronchus or lung (4) COPD (chronic obstructive pulmonary disease) Current Visit: Yes Status: Chronic Qualifiers: COPD type: COPD with acute exacerbation Qualified Code(s): J44.1 - Chronic obstructive pulmonary disease with (acute) exacerbation Discharge Plan: Other (Hospice) Plan to discharge in: 48 Hours - Code Status/Comfort Care Code Status Assessed: Yes Code Status: Do Not Resuscitate Comfort Measures: Hospice Care Critical Care: No
[2017-09-28] MEDS ORDERED: Morphine 2 MG/2 ML SYR IV PRN (10:27)
[2017-09-28] MEDS ORDERED: LORAZEPAM 1 MG TABLET PO PRN (10:27)
[2017-09-28] MEDS: HYDROCODONE/APAP 5/325 MG TAB PO PRN (20:15)
[2017-09-29] MEDS: IPRATROPIUM BROM 0.5MG/2.5ML NEB SCH ×4 (01:22→20:52)
[2017-09-29] MEDS: HYDROCODONE/APAP 5/325 MG TAB PO PRN ×2 (03:46→16:35)
[2017-09-29] MEDS: NA CHLORIDE 0.9% 1,000 ML IV SCH (06:13)
[2017-09-29] MEDS: LEVOTHYROXINE SOD 0.075 MG TAB PO SCH (06:13)
[2017-09-29 06:30] LABS: ALT/SGPT 51 IU/L (10-60); AST/SGOT 67 IU/L (10-42); Albumin 2.4 g/dL (3.2-5.5); Alkaline Phosphatase 106 IU/L (42-121); BUN Blood Urea Nitrogen 23 mg/dL (6-20); Bicarbonate 36 mEq/L (21-31); Bilirubin Total 0.3 mg/dL (0.3-1.2); Glucose Level 67 mg/dL (65-120); Magnesium 1.9 mg/dL (1.8-2.5); Phosphorus 1.5 mg/dL (2.5-4.3); Potassium 3.1 mEq/L (3.6-5.0); Protein, Total 4.8 g/dL (6.0-8.3); Sodium Level 141 mEq/L (135-145)
--- NOTE | 2017-09-29 07:27 | RAD REPORT ---
EXAM DESCRIPTION: RAD - Chest Single View - 09/29/2017 6:10 am CLINICAL HISTORY: Shortness of breath COMPARISON: September 28 chest film, September 26 CT chest TECHNIQUE: AP portable chest image was obtained 0557 hours . FINDINGS: Prominent fibrotic COPD pattern is again noted. No acute infiltrate identifiable. Chronic costophrenic angle blunting is seen. Right suprahilar mass has not changed. Heart size is normal. No acute vascular engorgement. No new or enlarging pleural effusion. There is no pneumothorax. No gross bony abnormality seen. No acute aortic findings suspected. IMPRESSION: Prominent underlying COPD pattern and right suprahilar mass are stable. No new or progressive finding from prior day study.
[2017-09-29] MEDS: ARFORMOTEROL TARTRATE 15 MCG/2 ML VIAL.NEB NEB SCH ×2 (08:13→20:52)
[2017-09-29] MEDS: ATORVASTATIN 20 MG TAB PO SCH (09:42)
[2017-09-29] MEDS: BUPROPRION HCL S R PO SCH ×2 (09:42→20:17)
[2017-09-29] MEDS: ASPIRIN EC 81 MG TAB PO SCH (09:43)
--- NOTE | 2017-09-29 10:01 | P.PN ---
Subjective Date of Service: 09/29/17 Primary Care Provider: Dr Bruno; Oncology-Dr Miller, Pulmonary-Dr Gonzalez Chief Complaint: SOB Subjective: Other (Patient without any significant pain. Patient on BiPAP.) Physical Examination - Vital Signs Temperature: 98.0 F Blood Pressure: 143/67 Pulse: 94 Respirations: 16 Pulse Ox (%): 97 - Physical Exam General: Alert, Other (Patient appears comfortable. BiPAP in place. She is without any significant pain.) HEENT: Atraumatic Neck: Supple Respiratory: Expiratory wheezes (Bilateral), Other (Poor inspiration and expiration. Currently on BiPAP.) Cardiovascular: Regular rate/rhythm Gastrointestinal: Normal bowel sounds, Soft and benign, Non-distended Musculoskeletal: No tenderness, No warmth, Other (Muscle wasting to the upper and lower extremities.) Neurological: Normal speech, Normal strength at 5/5 x4 extr, Normal tone, Normal affect - Studies Medications List Reviewed: Yes Assessment & Plan - Problems (Diagnosis) (1) Atrial fibrillation Current Visit: Yes Status: Acute Plan: New onset AFib noted. This is likely related to electrolyte disturbance. Patient is DNR and DNI. This was cuss in detail with the daughter who is making decisions for the patient. The daughter has chosen hospice. Will continue with comfort measures. Will start metoprolol to help with the rate. Daughter prefers that the patient go to a long-term with hospice or the patient will likely go home with hospice. Will discuss with community mental health social worker. Qualifiers: Atrial fibrillation type: paroxysmal Qualified Code(s): I48.0 - Paroxysmal atrial fibrillation (2) Hyperlipidemia Current Visit: Yes Status: Chronic Plan: Will continue with her medication. Qualifiers: Hyperlipidemia type: unspecified Qualified Code(s): E78.5 - Hyperlipidemia , unspecified (3) Hypothyroidism Current Visit: Yes Status: Chronic Plan: Will continue with her medication. Qualifiers: Hypothyroidism type: unspecified Qualified Code(s): E03.9 - Hypothyroidism , unspecified (4) Hypertension Current Visit: Yes Status: Chronic Plan: Will start metoprolol. Qualifiers: Hypertension type: essential hypertension Qualified Code(s): I10 - Essential (primary) hypertension (5) Anemia Current Visit: Yes Status: Chronic Plan: This is likely of chronic disease. Will monitor closely Qualifiers: Anemia type: other cause Other causes of anemia: chronic disease, neoplastic Qualified Code(s): D63.0 - Anemia in neoplastic disease (6) Hypokalemia Current Visit: Yes Status: Acute Plan: Will monitor and adjust. Since the patient is DNR and will go on hospice, will continue with comfort measures and discontinue IV draws. (7) Acute respiratory failure Current Visit: Yes Status: Acute Plan: Patient currently on BiPAP at this time. Patient with history of COPD. Patient with history of lung cancer now with metastasis to the liver. Patient DNR and DNI. Patient is being set up with hospice. Family prefers that the patient go to a long-term with hospice or home with hospice. Will discuss with community mental health social worker. Qualifiers: Respiratory failure complication: hypoxia and hypercapnia Qualified Code(s) : J96.01 - Acute respiratory failure with hypoxia; J96.02 - Acute respiratory failure with hypercapnia; J96.02 - Acute respiratory failure with hypercapnia; J96.02 - Acute respiratory failure with hypercapnia (8) Hypercalcemia of malignancy Current Visit: Yes Status: Acute Plan: Continue with above plan of care. Comfort measures to be continued. (9) COPD (chronic obstructive pulmonary disease) Current Visit: Yes Status: Chronic Plan: Continue with BiPAP. Qualifiers: COPD type: COPD with acute exacerbation Qualified Code(s): J44.1 - Chronic obstructive pulmonary disease with (acute) exacerbation (10) Lung cancer Current Visit: Yes Status: Chronic Plan: Continue with above plan of care. Will pursue hospice either at the long-term or at home. Qualifiers: Laterality: right Lung location: upper lobe of lung Qualified Code(s): C34.11 - Malignant neoplasm of upper lobe, right bronchus or lung (11) Liver metastasis Current Visit: Yes Status: Acute Plan: Liver metastasis noted. Continue with above plan of care. Discharge Plan: Other (alf with hospice versus home with hospice) Plan to discharge in: 24 Hours Time Spent Managing Pts Care (In Minutes): 55
--- NOTE | 2017-09-29 10:31 | EKG ---
Test Date: 2017-09-29 Test Time: 08:58:18 Hall Coordinator: ADONIS MEASUREMENT RESULTS: Intervals: Rate: 117 VA: QRSD: 64 QT: 196 QTc: 273 [place]: P: VA: QRS: 57 T: 265 INTERPRETIVE STATEMENTS: Atrial fibrillation with rapid ventricular response ST & T wave abnormality, consider inferior ischemia or digitalis effect ST & T wave abnormality, consider anterolateral ischemia or digitalis effect Abnormal ECG Compared to ECG 09/26/2017 14:47:40 ST (T wave) deviation now present Possible ischemia now present Sinus tachycardia no longer present Atrial abnormality no longer present Electronically Signed On 09-29-17 10:31:20 CDT by Ricco Rodriguez
[2017-09-29] MEDS ORDERED: ENOXAPARIN 40 MG/0.4 ML SQ SCH (17:00)
--- NOTE | 2017-09-29 17:40 | P.DS ---
Admission Date: 09/26/17 Discharge Date: 09/29/17 Primary Care Provider: Dr Bruno; Oncology-Dr Miller, Pulmonary-Dr Gonzalez Disposition: TRANSFER TO INTERMEDIATE Discharge Condition: FAIR Reason for Admission: SOB - Problems (1) Atrial fibrillation Onset Date: 09/29/17 Current Visit: Yes Status: Acute Qualifiers: Atrial fibrillation type: paroxysmal Qualified Code(s): I48.0 - Paroxysmal atrial fibrillation (2) Hyperlipidemia Onset Date: 09/29/17 Current Visit: Yes Status: Chronic Qualifiers: Hyperlipidemia type: unspecified Qualified Code(s): E78.5 - Hyperlipidemia , unspecified (3) Hypothyroidism Onset Date: 09/29/17 Current Visit: Yes Status: Chronic Qualifiers: Hypothyroidism type: unspecified Qualified Code(s): E03.9 - Hypothyroidism , unspecified (4) Hypertension Onset Date: 09/29/17 Current Visit: Yes Status: Chronic Qualifiers: Hypertension type: essential hypertension Qualified Code(s): I10 - Essential (primary) hypertension (5) Anemia Onset Date: 09/29/17 Current Visit: Yes Status: Chronic Qualifiers: Anemia type: other cause Other causes of anemia: chronic disease, neoplastic Qualified Code(s): D63.0 - Anemia in neoplastic disease (6) Hypokalemia Onset Date: 09/29/17 Current Visit: Yes Status: Acute (7) Acute respiratory failure Onset Date: 09/29/17 Current Visit: Yes Status: Acute Qualifiers: Respiratory failure complication: hypoxia and hypercapnia Qualified Code(s) : J96.01 - Acute respiratory failure with hypoxia; J96.02 - Acute respiratory failure with hypercapnia; J96.02 - Acute respiratory failure with hypercapnia; J96.02 - Acute respiratory failure with hypercapnia (8) Hypercalcemia of malignancy Onset Date: 09/29/17 Current Visit: Yes Status: Acute (9) COPD (chronic obstructive pulmonary disease) Onset Date: 09/29/17 Current Visit: Yes Status: Chronic Qualifiers: COPD type: COPD with acute exacerbation Qualified Code(s): J44.1 - Chronic obstructive pulmonary disease with (acute) exacerbation (10) Lung cancer Onset Date: 09/29/17 Current Visit: Yes Status: Chronic Qualifiers: Laterality: right Lung location: upper lobe of lung Qualified Code(s): C34.11 - Malignant neoplasm of upper lobe, right bronchus or lung (11) Liver metastasis Onset Date: 09/29/17 Current Visit: Yes Status: Acute Brief History of Present Illness: 72-year-old female with history of advanced COPD, lung cancer. The patient came in with acute respiratory failure. Patient was admitted for further evaluation and treatment. Hospital Course: Patient presented with acute respiratory failure secondary to COPD exacerbation. Patient with history of end-stage COPD and liver cancer. The patient was evaluated in the emergency room. CT scan revealed multiple metastasis to the liver. Patient required BiPAP. Patient also had significant electrolyte abnormalities included hypercalcemia. The patient was given IV fluids due to severe dehydration. Her condition was poor. Overall prognosis was poor. Her case was discussed with her medical power of attorney recruiter. Due to the findings of lung cancer with now liver metastasis advanced directives were addressed in detail. Risks and benefits were addressed. Medical power of attorney recruiter decided to make the patient DNR in D[facility]. Then hospice was discussed. Medical power attorney recruiter agreed to [facility] the patient [facility] a [facility] with hosp[facility] care. At this point comfort measures will be continued. Patient does not seem to be in any severe pain. Patient stable at this time. During her stay the patient did develop atrial fibrillation likely from multiple factors. The patient was started on metoprolol. No chronic anti coagulation was recommended due to her current condition. Patient may continue with metoprolol. Patient with history of hypertension, hypothyroidism. She may continue with her medications. As her condition declines patient will continue with comfort measures. At discharge [id number] DNR has been arranged. Vital Signs/Physical Exam: Temp Pulse Resp BP Pulse Ox 98.4 F 108 H 18 128/58 L 85 L 09/29/17 16:00 09/29/17 16:00 09/29/17 16:00 09/29/17 16:09/29/17 16:00 General: Alert HEENT: Atraumatic, Other (Dry mucous membranes) Neck: Supple Respiratory: Crackles/rales (Bilateral), Expiratory wheezes (Bilateral) Cardiovascular: Normal pulses, Regular rate/rhythm Gastrointestinal: Normal bowel sounds, Soft and benign, Non-distended Musculoskeletal: No tenderness, No warmth, Other (Muscle wasting to the upper lower extremities.) Laboratory Data at Discharge: WBC 9.7 K/uL (4.3-10.9) D 09/27/17 05:44 Hgb 8.5 g/dL (12.0-15.0) L 09/27/17 05:44 Hct 26.0 % (36.0-45.0) L D 09/27/17 05:44 Plt Count 280 K/uL (152-406) D 09/27/17 05:44 PT 13.1 SECONDS (9.5-12.5) H 09/26/17 14:50 INR 1.11 09/26/17 14:50 Sodium 141 mEq/L (135-145) 09/29/17 05:37 Potassium 3.1 mEq/L (3.6-5.0) L 09/29/17 05:37 BUN 23 mg/dL (6-20) H 09/29/17 05:37 Creatinine 0.58 mg/dL (0.44-1.00) 09/29/17 05:37 Glucose 67 mg/dL (65-120) 09/29/17 05:37 Phosphorus 1.5 mg/dL (2.5-4.3) L 09/29/17 05:37 Magnesium 1.9 mg/dL (1.8-2.5) 09/29/17 05:37 Total Bilirubin 0.3 mg/dL (0.3-1.2) 09/29/17 05:37 AST 67 IU/L (10-42) H 09/29/17 05:37 ALT 51 IU/L (10-60) 09/29/17 05:37 Alkaline Phosphatase 106 IU/L (42-121) 09/29/17 05:37 Troponin I 0.09 ng/mL (<0.03) H 09/26/17 23:39 B-Natriuretic Peptide 175 pg/ml (<=100) H 09/27/17 05:44 Home Medications: Albuterol Neb [Proventil 0.083% Neb Soln] 1 aero IH QID PRN 09/26/17 Albuterol Sulfate [Proair Hfa] 2 puff IH PRN PRN 09/26/17 Aspirin [Aspir-Low] 81 mg PO DAILY 09/26/17 Atorvastatin Calcium [Lipitor*] 20 mg PO DAILY 09/26/17 Buproprion S.r. [Wellbutrin Sr*] 100 mg PO BID 09/26/17 Cholecalciferol (Vitamin D3) [Vitamin D3] 1 tab PO DAILY 09/26/17 Clopidogrel Bisulfate [Plavix*] 75 mg PO DAILY 09/26/17 Fluticasone/Salmeterol [Advair 250-50 Diskus] 1 inh IH BID 09/26/17 Furosemide [Lasix*] 20 mg PO DAILY 09/26/17 Hydrocodone 5/APAP 325 [[place] 5/325*] 1 tab PO Q4H PRN 09/26/17 Levothyroxine Sodium [Levoxyl] 75 mcg PO DAILY 09/26/17 Lorazepam [Ativan*] 0.5 mg PO Q6H PRN 09/26/17 Mirtazapine [Remeron*] 15 mg PO BEDTIME 09/26/17 Tiotropium [place] [Spiriva Respimat] 1 inh IH DAILY 09/26/17 Metoprolol Tartrate [Lopressor*] 25 mg PO BID 6AM 6PM #60 tab 09/29/17 New Medications: Metoprolol Tartrate [Lopressor*] 25 mg PO BID 6AM 6PM #60 tab Patient Discharge Instructions: 1. [facility] will [facility] with [facility]. Patient will continue with hospice with comfort measures. 2. Patient presented with acute respiratory failure secondary to COPD exacerbation. Patient with history of end-stage COPD, lung cancer with new findings of liver metastasis. Patient is DNR and DNI. This was discussed in detail with power of attorney recruiter. [id number] has agreed to hospice. This will be arranged at the prison. Will continue with comfort measures. Further adjustment in medication can be done by hospice. 3. Patient with atrial fibrillation. Patient will continue with metoprolol. No chronic anti coagulation is recommend at this time. 4. Patient with hypertension. Patient will continue with metoprolol. Carvedilol and lisinopril has not been discontinued. 5. Hospice is to continue medications as provided and needed. Further adjustment can be done by hospice. 6. Patient will continue with oxygen to maintain sats above 90%. 7. Patient has underlying hypothyroidism. She may continue with her medication. 8. Medications may need to be discontinued as her condition deteriorates on hospice. Further adjustment can be done by hospice. Patient now has [id number] DNR in place. Diet: Comfort feeding Activity: Fall precautions Time spent managing pt's care (in minutes): 55
[2017-09-29] MEDS: METOPROLOL TAR 25 MG TAB PO SCH (18:11)
[2017-09-29] MEDS ORDERED: NA CHLORIDE 0.9% 250 ML IV PRN (19:43)
[2017-09-29] MEDS: METHYLPREDNISOLONE 40 MG INJ IV SCH (20:17)
[2017-09-30] MEDS: METHYLPREDNISOLONE 40 MG INJ IV SCH ×4 (00:14→12:24)
[2017-09-30] MEDS: IPRATROPIUM BROM 0.5MG/2.5ML NEB SCH ×2 (03:03→07:30)
[2017-09-30] MEDS: LEVOTHYROXINE SOD 0.075 MG TAB PO SCH ×3 (05:39→08:23)
[2017-09-30] MEDS: METOPROLOL TAR 25 MG TAB PO SCH ×2 (05:40→08:19)
[2017-09-30] MEDS: ARFORMOTEROL TARTRATE 15 MCG/2 ML VIAL.NEB NEB SCH (07:30)
[2017-09-30] MEDS: BUPROPRION HCL S R PO SCH (08:16)
[2017-09-30] MEDS: ATORVASTATIN 20 MG TAB PO SCH (08:16)
[2017-09-30] MEDS: ASPIRIN EC 81 MG TAB PO SCH (08:16)
[2017-09-30 11:09] VITALS: O2SAT 93
[2017-09-30 12:06] VITALS: BP 90/45; TEMP 98
== END 2017-09-30 12:49 | DRG 190 ==
LOC: ER 14:32 → ERHOLD 16:18 → 3RD-ICU 22:23 → 4TH 09-27 20:35
PROVIDERS: ADMIT Family Medicine; ATTEND Family Medicine
PROC: 5A09457 Assistance with Respiratory Ventilation, 24-96 Consecutive Hours, Continuous Positive Airway Pressure (ICD-10-PCS; principal; 2017-09-26)
DX: J44.1 Chronic obstructive pulmonary disease with (acute) exacerbation (principal); J96.02 Acute respiratory failure with hypercapnia; J96.01 Acute respiratory failure with hypoxia; C34.12 Malignant neoplasm of upper lobe, left bronchus or lung; C78.7 Secondary malignant neoplasm of liver and intrahepatic bile duct; I48.91 Unspecified atrial fibrillation; E78.5 Hyperlipidemia, unspecified; E03.9 Hypothyroidism, unspecified; I10 Essential (primary) hypertension; E87.6 Hypokalemia; E83.52 Hypercalcemia; D64.9 Anemia, unspecified; E86.0 Dehydration; Z66 Do not resuscitate
CPT/HCPCS: 36415; 51702; 71045; 71250; 77386; 80048; 80053; 80076; 82805; 83735; 83880; 84100; 84145; 84484; 85025; 85610; 87040; 93005; 94660; 94760; 96365; 96375; 99285; C9113; J1650; J2270; J2405; J2430; J2920; J7030; J7605